=== PATIENT | female | born 1965 | race Caucasian/White ===

== ENCOUNTER → 2018-07-31 | Outpatient (CLI) | payer BC ==
[~2018-07-31] VITALS: Ht 157.5 cm; Wt 99.8 kg
[~2018-07-31] MED LIST: ASPI-875 PO; CATHETER FLUSH 10 ML SYR IV PRN; CLOP75TA PO; INSU100I17 SQ; INSU100V5 SQ; LEVO125T6 PO; LISI1TAB PO; LVT.15T PO; METF-380 PO; MULT-974 PO; REGADENOSON 0.4 MG/5 ML SYR (LEXISCAN) IV ONE; SIMV10TA3 PO
--- NOTE | 2018-07-31 12:30 | STRESS TEST ---
DATE OF SERVICE: 07/31/2018 RESTING AND POST REGADENOSON TECHNETIUM-99M TETROFOSMIN SPECT CT IMAGING ORDERING PHYSICIAN: MAKENNA Craft. PRIMARY CARE PHYSICIAN: Elsa Cho APRN. CLINICAL DIAGNOSIS: Coronary artery disease. Baseline images were carried out after injection of 10.33 mCi of technetium-99m Tetrofosmin. This was followed by 0.4 mg regadenoson and 31 mCi of technetium-99m Tetrofosmin for stress imaging. The electrocardiogram showed sinus rhythm at baseline and did not change significantly with the regadenoson infusion. The patient tolerated the procedure well. Review of images at rest and following stress does not indicate any significant perfusion defects consistent with significant myocardial ischemia or infarction. Gated images show normal global left ventricular systolic function with normal regional wall motion. Left ventricular ejection fraction is calculated to be 80%. Left ventricular end diastolic volume is 29 mL. TID is absent (1.07). CONCLUSIONS: 1. No evidence of any significant myocardial ischemia or infarction on this study. 2. Normal regional wall motion. 3. Normal global left ventricular systolic function with a calculated ejection fraction at 80%. Job ID: [id number] DocumentID: [id number] Dictated Date: 07/31/2018 12:18:52 Adventure Guide Date: 07/31/2018 12:30:03 Dictated By: CASSANDRA CHAPPELL MD, MA, FACP, FACC,
== END ==
LOC: CARD 07:47
PROVIDERS: ATTEND Nurse Practitioner Family
DX: I25.10 Atherosclerotic heart disease of native coronary artery without angina pectoris (principal); R00.2 Palpitations; I10 Essential (primary) hypertension
CPT/HCPCS: 78452; 93017; 93225; 93226

== ENCOUNTER → 2021-06-11 | Outpatient (CLI) | payer BC, OTHER ==
[2021-06-11 09:05] VITALS: BP 164/98
[2021-06-11 09:10] VITALS: BP 162/101
--- NOTE | 2021-06-15 15:59 | STRESS TEST ---
DATE OF SERVICE: 06/11/2021 RESTING AND POST REGADENOSON TECHNETIUM-99M TETROFOSMIN SPECT CT IMAGING ORDERING PHYSICIAN: Dr. Adams. PRIMARY PHYSICIAN: MAKENNA Tomlin CLINICAL DIAGNOSIS: Coronary artery disease. Baseline images were carried out after injection of 10.93 mCi of technetium-99m Tetrofosmin. This was followed by 0.4 mg regadenoson and 30.3 mCi of technetium-99m Tetrofosmin for stress imaging. The electrocardiogram showed sinus rhythm at baseline. It did not change significantly with the regadenoson infusion. Review of images at rest and following stress does not indicate any distinct perfusion defects consistent with significant myocardial ischemia or infarction. Gated images show normal global left ventricular systolic function with normal regional wall motion. Left ventricular ejection fraction is calculated to be 70%. Left ventricular end diastolic volume is 41 mL. TID is absent (1.04). CONCLUSIONS: 1. No evidence of any significant myocardial ischemia or infarction on this study. 2. Normal regional wall motion. 3. Normal global left ventricular systolic function with a calculated ejection fraction 70%. Job ID: [id number] DocumentID: [id number] Dictated Date: 06/15/2021 13:34:05 Ep Specialist Date: 06/15/2021 15:57:14 Dictated By: CASSANDRA ADAMS MD, MA, FACP, FACC,
== END ==
LOC: CARD 08:15
PROVIDERS: ATTEND Internal Medicine Cardiovascular Disease
DX: I25.10 Atherosclerotic heart disease of native coronary artery without angina pectoris (principal)
CPT/HCPCS: 78452; 93017; A9502

== ENCOUNTER → 2021-06-17 | Outpatient (CLI) | payer BC, OTHER ==
[~2021-06-17] MED LIST changes: -CATHETER FLUSH 10 ML SYR IV PRN; -REGADENOSON 0.4 MG/5 ML SYR (LEXISCAN) IV ONE
== END ==
LOC: CARD 14:00
PROVIDERS: ATTEND Internal Medicine Cardiovascular Disease
DX: R00.2 Palpitations (principal); R07.89 Other chest pain
CPT/HCPCS: 93225; 93226; 93306